=== PATIENT | female | born 1990 | race American Indian/Alaskan Native ===

== ENCOUNTER 2018-08-11 22:44 | Emergency (ER) | payer OTHER | END 2018-08-12 00:08 | disposition left against medical advice (07) | LOC: ED 22:44 | DX: J11.1 Influenza due to unidentified influenza virus with other respiratory manifestations (principal); Z53.21 Procedure and treatment not carried out due to patient leaving prior to being seen by health care provider ==

== ENCOUNTER 2018-10-05 06:23 | Emergency (ER) | payer OTHER ==
[2018-10-05] MEDS ORDERED: NACL 0.9% 1000 ML 1,000 ML IV ONE (06:39)
--- NOTE | 2018-10-05 07:19 | Emergency Department Report ---
ED Abdominal Pain HPI - General Chief Complaint: Abdominal Pain Stated Complaint: ABDOMINAL PAIN Time Seen by Provider: 10/05/18 07:16 Source: patient, EMS Mode of arrival: Stretcher Limitations: No Limitations - History of Present Illness Initial Comments: She is a 28-year-old female arrived via EMS. She states that she had the relatively acute onset of right lower quadrant pain which also hurts in the left lower quadrant since yesterday. She is status post a myomectomy a few weeks ago. She was seen here in mid August 2018. At which time she had a negative CT of her abdomen and also presenting for abdominal pain. She has had multiple abdominal surgeries to include cholecystectomy and appendectomy and addition. In addition the patient gives a history of having ulcerative colitis. I don't see that well documented in her prior medical records. She denies ever having chronic pain management. She states that she has been having normal bowel movements. She complains of some ongoing nausea but no fever or chills. She does not complain of any vaginal discharge or dysuria. Per her recent discharge summary by Dr. Platt: Pt is a 28yo BF LMP 09/07/18 who presented for surgical evaluation and treatment of uterine fibroids. Pelvic u/s showed the uterus 7 x 5 x 4cm with a 5 x 4cm fundal fibroid. She underwent an uncomplicated Abdominal myomectomy and tolerated the procedure well. By POD #1 she was tolerating a reg diet without n ausea or vomiting, ambulating and voiding without difficulty. She was therefore discharged to home on POD #2 in stable condition. Condition at discharge: Good Disposition: [id number] TO HOME OR SELFCARE MD Complaint: abdominal pain -: Sudden (1.) Location: RLQ (right greater than left lower quadrant) Radiation: none Severity: moderate, severe Quality: aching Consistency: constant Improves With: nothing Worsens With: nothing Context: recent surgery/procedure Associated Symptoms: denies other symptoms, nausea - Related Data Previous Rx's Medication Instructions Recorded Last Taken Type Ferrous Sulfate [Feosol 325 MG tab] 325 mg PO BID #60 tablet 09/20/18 Unknown Rx HYDROcodone/APAP 5-325 [[place] 1 each PO Q6HR PRN #30 tablet 09/20/18 Unknown Rx 5-325 mg TAB] HYDROcodone/APAP 5-325 [[place] 1 each PO Q6HR PRN #10 tablet 10/05/18 Unknown Rx 5/325] Allergies Allergy/AdvReac Type Severity Reaction Status Date / Time No Known Allergies Allergy Verified 09/11/18 12:13 ED Review of Systems ROS: Stated complaint: ABDOMINAL PAIN Other details as noted in HPI Constitutional: denies: chills, fever Eyes: denies: eye pain, eye discharge, vision change ENT: denies: ear pain, throat pain Respiratory: denies: cough, shortness of breath, wheezing Cardiovascular: denies: chest pain, palpitations Endocrine: no symptoms reported Gastrointestinal: as per HPI, abdominal pain, nausea. denies: diarrhea Genitourinary: denies: urgency, dysuria, discharge Musculoskeletal: denies: back pain, joint swelling, arthralgia Skin: denies: rash, lesions Neurological: denies: headache, weakness, paresthesias Psychiatric: denies: anxiety, depression Hematological/Lymphatic: denies: easy bleeding, easy bruising ED Past Medical Hx - Past Medical History Previous Medical History?: Yes Additional medical history: ulcerative colitis - Surgical History Past Surgical History?: Yes Hx Cholecystectomy: Yes Hx Appendectomy: Yes Additional Surgical History: ankle surgery, uterine fibroids removed 09/18/18. States cholecystectomy and appendectomy - Social History Smoking Status: Never Smoker Substance Use Type: Marijuana - Medications Home Medications: Home Medications Medication Instructions Recorded Confirmed Last Taken Type Ferrous Sulfate [Feosol 325 MG tab] 325 mg PO BID #60 tablet 09/20/18 Unknown Rx HYDROcodone/APAP 5-325 [[place] 1 each PO Q6HR PRN #30 tablet 09/20/18 Unknown Rx 5-325 mg TAB] HYDROcodone/APAP 5-325 [[place] 1 each PO Q6HR PRN #10 tablet 10/05/18 Unknown Rx 5/325] ED Physical Exam - General Limitations: No Limitations General appearance: alert, in no apparent distress - Head Head exam: Present: atraumatic, normocephalic - Eye Eye exam: Present: normal appearance - ENT ENT exam: Present: mucous membranes moist - Neck Neck exam: Present: normal inspection - Respiratory Respiratory exam: Present: normal lung sounds bilaterally. Absent: respiratory distress - Cardiovascular Cardiovascular Exam: Present: regular rate, normal rhythm, other (heart rate is 60 despite complaints of severe pain). Absent: systolic murmur, diastolic murmur, rubs, gallop - GI/Abdominal GI/Abdominal exam: Present: soft, tenderness (tenderness appears to be d isproportionate even to light touch on the left side), normal bowel sounds. Absent: distended, guarding, rebound, rigid, organomegaly, mass, bruit, pulsatile mass, hernia - Extremities Exam Extremities exam: Present: normal inspection - Back Exam Back exam: Present: normal inspection - Neurological Exam Neurological exam: Present: alert, oriented X3, CN II-XII intact. Absent: motor sensory deficit - Psychiatric Psychiatric exam: Present: normal affect, normal mood - Skin Skin exam: Present: warm, dry, intact, normal color. Absent: rash ED Course Vital Signs 10/05/18 10/05/18 10/05/18 06:33 07:35 11:34 Temperature 98 F Pulse Rate 65 84 60 Respiratory 8 L 16 16 Rate Blood Pressure 139/103 Blood Pressure 147/84 160/101 [Left] O2 Sat by Pulse 100 96 95 Oximetry - Reevaluation(s) Reevaluation #1: Patient had continued disproportionate pain complaints. Her vital signs remai dalton normal. I spoke with Dr. King who is on-call for Dr. Platt. Dr. Platt has seen the patient in the office one week postop. The meter reader chief on-call did review the CT findings. She did not feel that it was necessary to see the patient directly at this point. She felt that follow-up in the office would be appropriate and a small course of oral pain medicine. Therefore the patient will be discharged at this juncture. 10/05/18 11:45 ED Medical Decision Making - Lab Data Result diagrams: 10/05/18 07:12 10/05/18 07:12 Laboratory Results - last 24 hr 10/05/18 10/05/18 07:12 07:12 WBC 8.5 RBC 3.86 Hgb 11.5 Hct 34.6 MCV 90 MCH 30 MCHC 33 RDW 13.8 Plt Count 338 Lymph % (Auto) 16.3 [place] % (Auto) 7.9 H Eos % (Auto) 0.9 Baso % (Auto) 0.4 Lymph # 1.4 [place] # 0.7 Eos # 0.1 Baso # 0.0 Seg Neutrophils % 74.5 H Seg Neutrophils # 6.3 Urine Color Yellow Urine Turbidity Clear Urine pH 6.0 Ur Specific [place] 1.024 Urine Protein 30 mg/dl Urine Glucose (UA) Neg Urine Ketones Neg Urine Blood Neg Urine Nitrite Neg Urine Bilirubin Neg Urine Urobilinogen 4.0 Ur Leukocyte Esterase Tr Urine WBC (Auto) 5.0 Urine RBC (Auto) 1.0 U Epithel Cells (Auto) < 1.0 Urine Bacteria (Auto) 1+ Urine Mucus Few Laboratory Results - last 24 hr 10/05/18 10/05/18 10/05/18 07:12 07:12 07:12 WBC 8.5 RBC 3.86 Hgb 11.5 Hct 34.6 MCV 90 MCH 30 MCHC 33 RDW 13.8 Plt Count 338 Lymph % (Auto) 16.3 [place] % (Auto) 7.9 H Eos % (Auto) 0.9 Baso % (Auto) 0.4 Lymph # 1.4 [place] # 0.7 Eos # 0.1 Baso # 0.0 Seg Neutrophils % 74.5 H Seg Neutrophils # 6.3 Sodium 138 Potassium 3.9 Chloride 101.0 Carbon Dioxide 21 L Anion Gap 20 BUN 8 Creatinine 0.6 L Estimated GFR > 60 BUN/Creatinine Ratio 13 Glucose 125 H Calcium 9.1 Total Bilirubin 0.50 AST 12 ALT 11 Alkaline Phosphatase 78 Total Protein 7.5 Albumin 4.0 Albumin/Globulin Ratio 1.1 Lipase HCG, Qual Urine Color Yellow Urine Turbidity Clear Urine pH 6.0 Ur Specific [place] 1.024 Urine Protein 30 mg/dl Urine Glucose (UA) Neg Urine Ketones Neg Urine Blood Neg Urine Nitrite Neg Urine Bilirubin Neg Urine Urobilinogen 4.0 Ur Leukocyte Esterase Tr Urine WBC (Auto) 5.0 Urine RBC (Auto) 1.0 U Epithel Cells (Auto) < 1.0 Urine Bacteria (Auto) 1+ Urine Mucus Few Urine HCG, Qual 10/05/18 10/05/18 10/05/18 07:12 07:12 07:12 WBC RBC Hgb Hct MCV MCH MCHC RDW Plt Count Lymph % (Auto) [place] % (Auto) Eos % (Auto) Baso % (Auto) Lymph # [place] # Eos # Baso # Seg Neutrophils % Seg Neutrophils # Sodium Potassium Chloride Carbon Dioxide Anion Gap BUN Creatinine Estimated GFR BUN/Creatinine Ratio Glucose Calcium Total Bilirubin AST ALT Alkaline Phosphatase Total Protein Albumin Albumin/Globulin Ratio Lipase 33 HCG, Qual Negative Urine Color Urine Turbidity Urine pH Ur Specific [place] Urine Protein Urine Glucose (UA) Urine Ketones Urine Blood Urine Nitrite Urine Bilirubin Urine Urobilinogen Ur Leukocyte Esterase Urine WBC (Auto) Urine RBC (Auto) U Epithel Cells (Auto) Urine Bacteria (Auto) Urine Mucus Urine HCG, Qual Negative - Radiology Data Radiology results: report reviewed interpreted by me: CONCLUSION: 1. Pelvic/lower abdominal wall anterior subcutaneous postoperative fluid noted, as described above in this patient with recent interval myomectomy. 2. No significant abnormality within the pelvis with small free fluid noted, within physiologic limits. 3. Various other incidental findings as mild distal esophageal thickening, cholecystectomy, nonobstructing bilateral nephrolithiasis and postappendectomy changes, amongst others, as above. Critical care attestation.: If time is entered above; I have spent that time in minutes in the direct care of this critically ill patient, excluding procedure time. ED Disposition Clinical Impression: Status post myomectomy Abdominal pain Qualifiers: Abdominal location: lower abdomen, unspecified Qualified Code(s): R10.30 - Lower abdominal pain, unspecified Disposition: TO HOME OR SELFCARE Is pt being admited?: No Does the pt Need Aspirin: No Condition: Stable Instructions: Abdominal Pain (ED) Additional Instructions: Return any acute change or problem. See Dr. Platt on Monday or call the office for further instruction. Prescriptions: HYDROcodone/APAP 5-325 [[place] 5/325] 1 each PO Q6HR PRN #10 tablet PRN Reason: Pain Referrals: CLARENCE GUTIERREZ MD [Primary Care Provider] - 3-5 Days NIRALI PLATT MD [Staff Physician] - 2-3 Days Time of Disposition: 11:48
[2018-10-05 07:28] LABS: Bacteria,Urine 1+ /HPF (Negative); Bilirubin,Urine NEG (Negative); Blood,Urine NEG (Negative); Color,Urine Yellow (Yellow); Mucus,Urine FEW /HPF
[2018-10-05] MEDS ORDERED: MORPHINE ONE (07:30)
[2018-10-05] MEDS ORDERED: ZOFRAN ONE (07:30)
[2018-10-05 07:32] LABS: Basophils % (Auto) 0.4 % (0.0-1.8); Eosinophils # (Auto) 0.1 K/mm3 (0.0-0.4); Eosinophils % (Auto) 0.9 % (0.0-4.3); Hematocrit 34.6 % (30.3-42.9); Hemoglobin 11.5 gm/dl (10.1-14.3); Lymphocytes # (Auto) 1.4 K/mm3 (1.2-5.4); Lymphocytes % (Auto) 16.3 % (13.4-35.0); Mean Corpuscular HGB Conc 33 % (30-34); Mean Corpuscular Volume 90 fl (79-97); Monocytes # (Auto) 0.7 K/mm3 (0.0-0.8); Monocytes % (Auto) 7.9 % (0.0-7.3); Platelet Count 338 K/mm3 (140-440); Red Blood Count 3.86 M/mm3 (3.65-5.03); Red Cell Distribution Width 13.8 % (13.2-15.2)
[2018-10-05] MEDS ORDERED: MORPHINE IV ONE (07:32)
[2018-10-05] MEDS ORDERED: ZOFRAN IV ONE (07:33)
[2018-10-05 07:43] LABS: HCG Qualitative,Urine Negative (Negative)
[2018-10-05 07:48] LABS: Alanine Aminotransferase 11 units/L (7-56); BUN/Creatinine Ratio 13; Blood Urea Nitrogen 8 mg/dL (7-17); Calcium 9.1 mg/dL (8.4-10.2); Hemolysis Index 12
--- NOTE | 2018-10-05 09:36 | Cat Scan Report ---
CT ABDOMEN AND PELVIS WITH CONTRAST INDICATION: Right lower quadrant pain, myomectomy 2 weeks ago. COMPARISON: 08/12/2018 CT. FINDINGS: Abdomen and pelvis CT performed following intravenous administration of 100 cc of Omnipaque 300. LUNG BASES: Nonspecific distal esophageal wall mild prominence/thickening, not excluded for gastroesophageal reflux and/or hiatal hernia, amongst others. ABDOMEN: Stable cholecystectomy and few small nonobstructing bilateral renal calculi, more numerous and larger on the right than left, measuring up to 3-4 mm at the right upper renal pole as on axial series 2, image 50 and better visualized on prior noncontrast exam. Liver, spleen, pancreas, adrenals, aorta and IVC remain within normal limits. Nonopacified GI tract evaluation limited, though grossly nonobstructive. Stable appendectomy changes. No ascites or size significant adenopathy. PELVIS: Interval resection of dominant fundal fibroid projecting anteroinferiorly on the right towards the groin as on axial image 140, series 2 previously. Grossly unremarkable remainder uterus, adnexa, urinary bladder and the rectosigmoid. Small free fluid in the cul-de-sac posteriorly seen as on axial image 135, within physiologic limits. No size significant adenopathy. Lower abdominal/anterior pelvic wall now demonstrates approximately 2 cm AP x 10.5 cm transverse and approximately 5 cm craniocaudal simple subcutaneous fluid attenuation as on axial series 2, images 111-131, likely postoperative. Subtle subcutaneous fat stranding may also extend superolaterally as on axial images 65-95. No focal aggressive osseous lesions with a transitional lumbosacral vertebra possible. CONCLUSION: 1. Pelvic/lower abdominal wall anterior subcutaneous postoperative fluid noted, as described above in this patient with recent interval myomectomy. 2. No significant abnormality within the pelvis with small free fluid noted, within physiologic limits. 3. Various other incidental findings as mild distal esophageal thickening, cholecystectomy, nonobstructing bilateral nephrolithiasis and postappendectomy changes, amongst others, as above. Thank you for the opportunity to participate in this patient's care.
[2018-10-05] MEDS ORDERED: DILAUDID IV ONE (11:26)
[2018-10-05 12:42] VITALS: BP 126/71
== END 2018-10-05 12:42 | disposition home or self-care (01) ==
LOC: ED 06:23
DX: O26.891 Other specified pregnancy related conditions, first trimester (principal); O34.29 Maternal care due to uterine scar from other previous surgery; Z3A.01 Less than 8 weeks gestation of pregnancy; Z90.49 Acquired absence of other specified parts of digestive tract; Z98.890 Other specified postprocedural states
CPT/HCPCS: 36415; 74177; 80053; 81001; 81025; 83690; 84703; 85025; 96374; 96375; 99284; J1170; J2270; J2405; J7030; Q9967

== ENCOUNTER 2018-10-06 08:23 | Emergency (ER) | payer OTHER ==
[2018-10-06] MEDS ORDERED: ZOFRAN ONE (08:35)
[2018-10-06] MEDS ORDERED: REGLAN ONE (10:06)
[2018-10-06] MEDS ORDERED: DILAUDID ONE (10:07)
--- NOTE | 2018-10-06 10:09 | Emergency Department Report ---
ED General Adult HPI - General Chief complaint: Abdominal Pain Stated complaint: ABD PAIN Time Seen by Provider: 10/06/18 10:05 Source: patient, EMS (ems notes not available at time of chart dictation), RN notes reviewed, old records reviewed Mode of arrival: Stretcher Limitations: No Limitations - History of Present Illness Initial comments: This is a 28-year-old female. The patient is not known to this provider previously. 2 weeks ago, patient had elective myomectomy with my colleague, Dr. Kaiden Platt. She was apparently discharged with an uncomplicated postoperative course. She apparently followed up in his office one week later, without significant complication. She presented to this emergency room yesterday with abdominal pain. A CT scan of the abdomen and pelvis performed yesterday demonstrated a 2 cm x 10 cm and approximately 5 cm simple subcutaneous fluid accumulation, on the lower abdominal wall. This was suspected to be a postoperative fluid collection, seroma, but not infectious in etiology. The case was discussed with the mat making machine tender sanitation director, Dr. Rashawn King, who advised that this particular finding did not represent an emergent postoperative surgical complication. The patient was subsequently discharged with oral pain medication. The patient presents with recurrent lower abdominal pain. She reports the pain has been present for 2-3 days. It is burning, aching, sharp, does not radiate anywhere, increased with palpation, decreased with position, decreased with rest, and also decreased with intravenous hydromorphone, and Reglan, provided in the emergency room. The patient reports no irritative or obstructive urinary symptoms. On review of systems, the patient does admits to intermittent consumption of cannabis, and also endorses occasional relief of chronic discomfort with hot baths, hot showers. The patient is currently resting comfortable he, in her stretcher, sleeping, with no active vomiting. -: Gradual Location: abdomen Radiation: non-radiation Severity scale (0 -10): 9 Quality: aching Consistency: intermittent Improves with: medication Associated Symptoms: nausea/vomiting - Related Data Previous Rx's Medication Instructions Recorded Last Taken Type Ferrous Sulfate [Feosol 325 MG tab] 325 mg PO BID #60 tablet 09/20/18 Unknown Rx HYDROcodone/APAP 5-325 [[place] 1 each PO Q6HR PRN #30 tablet 09/20/18 Unknown Rx 5-325 mg TAB] HYDROcodone/APAP 5-325 [[place] 1 each PO Q6HR PRN #10 tablet 10/05/18 Unknown Rx 5/325] Ondansetron [Zofran Odt] 4 mg PO Q8HR PRN #20 tab.rapdis 10/06/18 Unknown Rx Promethazine [Phenergan SUPPOS] 50 mg MO Q6H PRN #15 supp.rect 10/06/18 Unknown Rx Allergies Allergy/AdvReac Type Severity Reaction Status Date / Time No Known Allergies Allergy Verified 09/11/18 12:13 ED Review of Systems ROS: Stated complaint: ABD PAIN Other details as noted in HPI Constitutional: malaise. denies: fever Eyes: denies: vision change ENT: denies: epistaxis Respiratory: denies: cough Cardiovascular: denies: chest pain Gastrointestinal: abdominal pain, nausea, vomiting Genitourinary: denies: dysuria Musculoskeletal: denies: back pain Skin: denies: lesions Neurological: weakness Psychiatric: anxiety ED Past Medical Hx - Past Medical History Previous Medical History?: No Additional medical history: ulcerative colitis - Surgical History Past Surgical History?: Yes Hx Cholecystectomy: Yes Hx Appendectomy: Yes Additional Surgical History: ankle surgery, uterine fibroids removed 09/18/18. States cholecystectomy and appendectomy - Social History Smoking Status: Unknown if ever smoked - Medications Home Medications: Home Medications Medication Instructions Recorded Confirmed Last Taken Type Ferrous Sulfate [Feosol 325 MG tab] 325 mg PO BID #60 tablet 09/20/18 Unknown Rx HYDROcodone/APAP 5-325 [[place] 1 each PO Q6HR PRN #30 tablet 09/20/18 Unknown Rx 5-325 mg TAB] HYDROcodone/APAP 5-325 [[place] 1 each PO Q6HR PRN #10 tablet 10/05/18 Unknown Rx 5/325] Ondansetron [Zofran Odt] 4 mg PO Q8HR PRN #20 tab.rapdis 10/06/18 Unknown Rx Promethazine [Phenergan SUPPOS] 50 mg MO Q6H PRN #15 supp.rect 10/06/18 Unknown Rx ED Physical Exam - General Limitations: No Limitations General appearance: alert, anxious, in distress - Head Head exam: Present: atraumatic, normocephalic - Eye Eye exam: Present: normal appearance, EOMI - ENT ENT exam: Present: normal exam, normal orophraynx, mucous membranes moist, normal external ear exam - Neck Neck exam: Present: normal inspection, full ROM. Absent: tenderness, meningismus - Respiratory Respiratory exam: Present: normal lung sounds bilaterally. Absent: respiratory distress - Cardiovascular Cardiovascular Exam: Present: regular rate, normal rhythm, normal heart sounds. Absent: bradycardia, tachycardia, irregular rhythm, systolic murmur, diastolic murmur, rubs, gallop - GI/Abdominal GI/Abdominal exam: Present: soft, tenderness (there is mild lower abdominal tenderness. There is no rebound, guarding or peritoneal signs. No redness, pus or streaking). Absent: distended, guarding, rebound, rigid, pulsatile mass - Extremities Exam Extremities exam: Present: normal inspection, full ROM, other (2+ pulses noted in the bilateral upper, lower extremities. Compartments soft. No long bony tenderness. The pelvis is stable.). Absent: pedal edema, joint swelling, calf tenderness - Back Exam Back exam: Present: normal inspection, full ROM. Absent: tenderness, CVA tenderness (R), paraspinal tenderness, vertebral tenderness - Neurological Exam Neurological exam: Present: alert, oriented X3, CN II-XII intact, other (Extraocular movements intact. Tongue midline. No facial droop. Facial sensa tion intact to light touch in the V1, V2, V3 distribution bilaterally. 5 and 5 strength in 4 extremities.. Sensation is intact to light touch in 4 extremities.). Absent: motor sensory deficit - Psychiatric Psychiatric exam: Present: anxious - Skin Skin exam: Present: warm, dry, intact, normal color. Absent: rash ED Course Vital Signs 10/06/18 10/06/18 08:49 10:14 Temperature 97.8 F Pulse Rate 76 Respiratory 20 18 Rate Blood Pressure 153/85 [Right] O2 Sat by Pulse 100 Oximetry - Reevaluation(s) Reevaluation #1: 10/06/18 10:09 Filled ID Written Drug QTY Days Prescriber Rx # Pharmacy * Refills Daily Dose Pymt Type [facility] [employer] [employer] 09/21/2018 2 09/21/2018 HYDROCODONE-ACETAMIN 5-325 MG 30.0 8 TI BRO [id number] [facility] ([id number]) 0 18.75 [facility] [place] 03/23/2018 2 03/23/2018 ACETAMINOPHEN-COD #3 TABLET 12.0 3 WE LEI [id number] [facility] ([id number]) 0 18.0 [facility] [place] 11/29/2017 3 11/28/2017 HYDROCODONE-ACETAMIN 5-325 MG 24.0 12 [facility] [id number] [facility] ([id number]) 0 10.0 [facility] [place] garment cutter aware Reevaluation #2: 10/06/18 11:25 Differential diagnosis, including not limited to: Postoperative seroma, postoperative pain, cannabinoid hyperemesis syndrome, cyclic vomiting syndrome Assessment and plan: 28-year-old female with recurrent lower abdominal pain. The patient is reported to have an uncomplicated postoperative course, and reportedly followed up for her outpatient postoperative appointment without complication. The patient currently does not have active vomiting. Her CT scan findings were reviewed from yesterday, and discussed with her mat making machine tender of record, Dr. Daisha rice. He agrees that the patient's condition does not require emergent gynecologic consultation, for inpatient hospitalization. He agrees that patient is suitable to follow up as an outpatient closely. Advises warm compresses. The patient will be counseled to discontinue cannabis consumption. Her prescriptions were reviewed with the [place] prescription monitoring database. She was given a short course of narcotic prescription, appropriately so, by my colleague yesterday, Dr. Ely. 10/06/18 11:30 ED Medical Decision Making - Lab Data Result diagrams: 10/06/18 10:29 10/06/18 10:29 Vital Signs 10/06/18 10/06/18 08:49 10:14 Temperature 97.8 F Pulse Rate 76 Respiratory 20 18 Rate Blood Pressure 153/85 [Right] O2 Sat by Pulse 100 Oximetry Lab Results 10/06/18 10/06/18 10/06/18 Range/Units 10:29 10:29 10:29 WBC 8.8 (4.5-11.0) K/mm3 RBC 4.15 (3.65-5.03) M/mm3 Hgb 12.3 (10.1-14.3) gm/dl Hct 36.6 (30.3-42.9) % MCV 88 (79-97) fl MCH 30 (28-32) pg MCHC 34 (30-34) % RDW 13.2 (13.2-15.2) % Plt Count 320 (140-440) K/mm3 Lymph % (Auto) 12.8 L (13.4-35.0) % [place] % (Auto) 5.8 (0.0-7.3) % Eos % (Auto) 2.3 (0.0-4.3) % Baso % (Auto) 0.6 (0.0-1.8) % Lymph # 1.1 L (1.2-5.4) K/mm3 [place] # 0.5 (0.0-0.8) K/mm3 Eos # 0.2 (0.0-0.4) K/mm3 Baso # 0.1 (0.0-0.1) K/mm3 Seg Neutrophils % 78.5 H (40.0-70.0) % Seg Neutrophils # 6.9 (1.8-7.7) K/mm3 Sodium 137 (137-145) mmol/L Potassium 3.5 L (3.6-5.0) mmol/L Chloride 102.4 (98-107) mmol/L Carbon Dioxide 21 L (22-30) mmol/L Anion Gap 17 mmol/L BUN 10 (7-17) mg/dL Creatinine 0.8 (0.7-1.2) mg/dL Estimated GFR > 60 ml/min BUN/Creatinine Ratio 13 % Glucose 118 H (65-100) mg/dL Lactic Acid 1.20 (0.7-2.0) mmol/L Calcium 9.3 (8.4-10.2) mg/dL Magnesium 1.70 (1.7-2.3) mg/dL Total Bilirubin 0.30 (0.1-1.2) mg/dL AST 13 (5-40) units/L ALT 10 (7-56) units/L Alkaline Phosphatase 81 (35-129) units/L Total Creatine Kinase 65 (30-135) units/L Total Protein 7.6 (6.3-8.2) g/dL Albumin 4.0 (3.9-5) g/dL Albumin/Globulin Ratio 1.1 % - Radiology Data Radiology results: report reviewed, image reviewed CT scan report and findings from yesterday are reviewed Critical care attestation.: If time is entered above; I have spent that time in minutes in the direct care of this critically ill patient, excluding procedure time. ED Disposition Clinical Impression: Status post myomectomy, Abdominal pain Disposition: TO HOME OR SELFCARE Is pt being admited?: No Does the pt Need Aspirin: No Condition: Stable Instructions: Abdominal Pain (ED) Additional Instructions: Take the medications as needed/directed. Apply warm compresses to the lower abdominal region as needed. Follow up with her mat making machine tender, Dr. Platt, within the next 3-5 days. Discontinue consumption of cannabis. Advance diet as tolerated. Return to the emergency room right away with new, worsening or different symptoms. Referrals: KAIDEN PLATT MD [Staff Physician] - 3-5 Days
[2018-10-06] MEDS ORDERED: NACL 0.9% 1000 ML 1,000 ML IV ONE (10:14)
[2018-10-06] MEDS ORDERED: REGLAN IV ONE (10:15)
[2018-10-06] MEDS ORDERED: ZOFRAN IV ONE (10:15)
[2018-10-06] MEDS ORDERED: DILAUDID IV ONE (10:15)
[2018-10-06 10:41] LABS: Basophils # (Auto) 0.1 K/mm3 (0.0-0.1); Basophils % (Auto) 0.6 % (0.0-1.8); Eosinophils # (Auto) 0.2 K/mm3 (0.0-0.4); Eosinophils % (Auto) 2.3 % (0.0-4.3); Hematocrit 36.6 % (30.3-42.9); Hemoglobin 12.3 gm/dl (10.1-14.3); Lymphocytes # (Auto) 1.1 K/mm3 (1.2-5.4); Lymphocytes % (Auto) 12.8 % (13.4-35.0); Mean Corpuscular HGB Conc 34 % (30-34); Mean Corpuscular Volume 88 fl (79-97); Monocytes # (Auto) 0.5 K/mm3 (0.0-0.8); Monocytes % (Auto) 5.8 % (0.0-7.3); Platelet Count 320 K/mm3 (140-440); Red Blood Count 4.15 M/mm3 (3.65-5.03); Red Cell Distribution Width 13.2 % (13.2-15.2)
[2018-10-06 11:04] LABS: Alanine Aminotransferase 10 units/L (7-56); BUN/Creatinine Ratio 13; Blood Urea Nitrogen 10 mg/dL (7-17); Calcium 9.3 mg/dL (8.4-10.2); Hemolysis Index 14
[2018-10-06] MEDS ORDERED: PERCOCET 5/325 PO ONE (12:18)
[2018-10-06 18:46] VITALS: BP 137/77
== END 2018-10-06 11:45 | disposition home or self-care (01) ==
LOC: ED 08:23
DX: K91.89 Other postprocedural complications and disorders of digestive system (principal); R10.30 Lower abdominal pain, unspecified; R11.2 Nausea with vomiting, unspecified; Z98.890 Other specified postprocedural states
CPT/HCPCS: 36415; 80053; 82140; 82550; 83735; 85025; 96361; 96374; 96375; 99284; J1170; J2405; J2765; J7030

== ENCOUNTER 2018-11-12 09:21 | Emergency (ER) | payer OTHER ==
[2018-11-12] MEDS ORDERED: ZOFRAN IV ONE ×2 (11:48→14:16)
[2018-11-12] MEDS ORDERED: NACL 0.9% 1000 ML 1,000 ML IV ONE (11:48)
[2018-11-12] MEDS ORDERED: MORPHINE IV ONE ×2 (11:48→14:16)
[2018-11-12 12:36] LABS: Basophils % (Auto) 0.6 % (0.0-1.8); Eosinophils # (Auto) 0.1 K/mm3 (0.0-0.4); Eosinophils % (Auto) 0.7 % (0.0-4.3); Hematocrit 36.4 % (30.3-42.9); Hemoglobin 11.9 gm/dl (10.1-14.3); Lymphocytes # (Auto) 1.6 K/mm3 (1.2-5.4); Lymphocytes % (Auto) 20.7 % (13.4-35.0); Mean Corpuscular HGB Conc 33 % (30-34); Mean Corpuscular Volume 89 fl (79-97); Monocytes # (Auto) 0.5 K/mm3 (0.0-0.8); Monocytes % (Auto) 6.9 % (0.0-7.3); Platelet Count 275 K/mm3 (140-440); Red Blood Count 4.08 M/mm3 (3.65-5.03); Red Cell Distribution Width 14.2 % (13.2-15.2)
[2018-11-12 12:42] LABS: Alanine Aminotransferase 8 units/L (7-56); Albumin 4.3 g/dL (3.9-5); BUN/Creatinine Ratio 9; Blood Urea Nitrogen 6 mg/dL (7-17); Calcium 8.8 mg/dL (8.4-10.2); Hemolysis Index 6
--- NOTE | 2018-11-12 12:43 | Emergency Department Report ---
<ROBERTA AZUL - Last Filed: 11/12/18 12:41> ED General Adult HPI - General Chief complaint: Nausea/Vomiting/Diarrhea Stated complaint: ABDOMINAL PAIN Time Seen by Provider: 11/12/18 11:27 Source: patient Mode of arrival: Ambulatory Limitations: No Limitations - History of Present Illness Initial comments: The patient complains of abdominal pain with nausea and vomiting x 3 days. The patient has Ulcerative Colitis. Patient denies diarrhea -: Sudden Location: abdomen Radiation: non-radiation Severity scale (0 -10): 10 Quality: stabbing Consistency: constant Improves with: none Worsens with: none Associated Symptoms: denies other symptoms Treatments Prior to Arrival: none - Related Data Previous Rx's Medication Instructions Recorded Last Taken Type Ferrous Sulfate [Feosol 325 MG tab] 325 mg PO BID #60 tablet 09/20/18 Unknown Rx Ibuprofen [Motrin 600 MG tab] 600 mg PO Q8H PRN #30 tablet 10/06/18 Unknown Rx Promethazine [Phenergan SUPPOS] 50 mg [place] Q6H PRN #15 supp.rect 10/06/18 Unknown Rx Dicyclomine [Bentyl] 10 mg PO QID PRN #20 capsule 11/12/18 Unknown Rx Ondansetron [Zofran ODT TAB] 4 mg PO Q8HR PRN #14 tab.rapdis 11/12/18 Unknown Rx Allergies Allergy/AdvReac Type Severity Reaction Status Date / Time No Known Allergies Allergy Verified 09/11/18 12:13 ED Review of Systems Comment: All other systems reviewed and negative Constitutional: denies: chills, fever Eyes: denies: eye pain, eye discharge, vision change ENT: denies: ear pain, throat pain Respiratory: denies: cough, shortness of breath, wheezing Cardiovascular: denies: chest pain, palpitations Endocrine: no symptoms reported Gastrointestinal: abdominal pain, nausea, vomiting. denies: diarrhea Genitourinary: denies: urgency, dysuria, discharge Musculoskeletal: denies: back pain, joint swelling, arthralgia Skin: denies: rash, lesions Neurological: denies: headache, weakness, paresthesias Psychiatric: denies: anxiety, depression Hematological/Lymphatic: denies: easy bleeding, easy bruising ED Past Medical Hx - Past Medical History Previous Medical History?: Yes Additional medical history: ulcerative colitis - Surgical History Past Surgical History?: Yes Hx Cholecystectomy: Yes Hx Appendectomy: Yes Additional Surgical History: ankle surgery, uterine fibroids removed 09/18/18. States cholecystectomy and appendectomy - Social History Smoking Status: Never Smoker Substance Use Type: None - Medications Home Medications: Home Medications Medication Instructions Recorded Confirmed Last Taken Type Ferrous Sulfate [Feosol 325 MG tab] 325 mg PO BID #60 tablet 09/20/18 Unknown Rx Ibuprofen [Motrin 600 MG tab] 600 mg PO Q8H PRN #30 tablet 10/06/18 Unknown Rx Promethazine [Phenergan SUPPOS] 50 mg [place] Q6H PRN #15 supp.rect 10/06/18 Unknown Rx Dicyclomine [Bentyl] 10 mg PO QID PRN #20 capsule 11/12/18 Unknown Rx Ondansetron [Zofran ODT TAB] 4 mg PO Q8HR PRN #14 tab.rapdis 11/12/18 Unknown Rx ED Physical Exam - General Limitations: No Limitations General appearance: alert, in no apparent distress - Head Head exam: Present: atraumatic, normocephalic - Eye Eye exam: Present: normal appearance, PERRL, EOMI - ENT ENT exam: Present: mucous membranes moist - Neck Neck exam: Present: normal inspection - Respiratory Respiratory exam: Present: normal lung sounds bilaterally. Absent: respiratory distress, wheezes, rales - Cardiovascular Cardiovascular Exam: Present: regular rate, normal rhythm. Absent: systolic murmur, diastolic murmur, rubs, gallop - GI/Abdominal GI/Abdominal exam: Present: soft, tenderness, normal bowel sounds. Absent: distended - Extremities Exam Extremities exam: Present: normal inspection - Back Exam Back exam: Present: normal inspection - Neurological Exam Neurological exam: Present: alert, oriented X3, CN II-XII intact. Absent: motor sensory deficit - Psychiatric Psychiatric exam: Present: normal affect, normal mood - Skin Skin exam: Present: warm, dry, intact, normal color. Absent: rash ED Medical Decision Making - Lab Data Result diagrams: 11/12/18 12:08 ED Disposition Clinical Impression: Abdominal pain Qualifiers: Abdominal location: generalized Qualified Code(s): R10.84 - Generalized abdominal pain Nausea & vomiting Qualifiers: Vomiting type: unspecified Vomiting Intractability: non-intractable Qualified Code(s): R11.2 - Nausea with vomiting, unspecified Disposition: DC-01 TO HOME OR SELFCARE Condition: Stable Instructions: Abdominal Pain (ED), Acute Nausea and Vomiting (ED) Additional Instructions: Please follow up with your GI doctor, Dr. Platt in 2-3 days. Follow up with your primary care doctor in the next 2-3 days. Return to the emergency room for any new or worsening symptoms as discussed. Take medication as prescribed. Prescriptions: Dicyclomine [Bentyl] 10 mg PO QID PRN #20 capsule PRN Reason: Pain Ondansetron [Zofran ODT TAB] 4 mg PO Q8HR PRN #14 tab.rapdis PRN Reason: Nausea Referrals: NYA GILL MD [Primary Care Provider] - 2-3 Days JOSEFA PLATT MD [Staff Physician] - 2-3 Days Print Language: OCCITAN <AUBREY LLAMAS - Last Filed: 11/12/18 17:58> ED Review of Systems ROS: Stated complaint: ABDOMINAL PAIN Other details as noted in HPI ED Course Vital Signs 11/12/18 11/12/18 11/12/18 09:48 12:33 13:30 Temperature 98.2 F 98.2 F Pulse Rate 68 62 Respiratory 16 18 16 Rate Blood Pressure 146/82 Blood Pressure 105/60 [Right] O2 Sat by Pulse 100 100 Oximetry 11/12/18 16:43 Temperature 98 F Pulse Rate 72 Respiratory 17 Rate Blood Pressure Blood Pressure 105/65 [Right] O2 Sat by Pulse 96 Oximetry ED Medical Decision Making - Lab Data Result diagrams: 11/12/18 12:08 11/12/18 12:08 Labs 11/12/18 11/12/18 11/12/18 12:08 12:08 12:08 WBC 7.5 RBC 4.08 Hgb 11.9 Hct 36.4 MCV 89 MCH 29 MCHC 33 RDW 14.2 Plt Count 275 Lymph % (Auto) 20.7 [place] % (Auto) 6.9 Eos % (Auto) 0.7 Baso % (Auto) 0.6 Lymph # 1.6 [place] # 0.5 Eos # 0.1 Baso # 0.0 Seg Neutrophils % 71.1 H Seg Neutrophils # 5.3 Sodium 138 Potassium 3.6 Chloride 103.0 Carbon Dioxide 23 Anion Gap 16 BUN 6 L Creatinine 0.7 Estimated GFR > 60 BUN/Creatinine Ratio 9 Glucose 114 H Calcium 8.8 Total Bilirubin 0.70 AST 13 ALT 8 Alkaline Phosphatase 64 Total Protein 7.8 Albumin 4.3 Albumin/Globulin Ratio 1.2 Lipase 31 HCG, Qual Negative Vital Signs 11/12/18 11/12/18 11/12/18 09:48 12:33 13:30 Temperature 98.2 F 98.2 F Pulse Rate 68 62 Respiratory 16 18 16 Rate Blood Pressure 146/82 Blood Pressure 105/60 [Right] O2 Sat by Pulse 100 100 Oximetry 11/12/18 16:43 Temperature 98 F Pulse Rate 72 Respiratory 17 Rate Blood Pressure Blood Pressure 105/65 [Right] O2 Sat by Pulse 96 Oximetry - Radiology Data Radiology results: report reviewed PROCEDURE: CT ABDOMEN PELVIS W CON TECHNIQUE: Following IV administration of 100 cc of Omnipaque 300 axial helical imaging was performed through the abdomen and pelvis with sagittal and coronal reformatted images obtained. HISTORY: ab pain COMPARISONS: CT abdomen and pelvis dated October 05, 2018 FINDINGS: The lung bases are without infiltrate, pneumothorax or pleural fluid collection. The heart appears to be normal size. There is evidence of fatty infiltration of the liver. The spleen, pancreas and adrenal glands are unremarkable. There are punctate nonobstructing stones in the right renal pelvis. There is no evidence of hydronephrosis nor hydroureter. The gallbladder is absent with surgical clips in the gallbladder fossa. The bowel is normal caliber. There is no evidence of pneumoperitoneum or free fluid. There is evidence of previous appendectomy. The abdominal aorta is normal caliber. There is no evidence of intra-abdominal adenopathy. The urinary bladder is moderately distended and unremarkable. The uterus and adnexa are unremarkable. The bony structures are unremarkable. The previously demonstrated abnormal fluid collection in the anterior abdominal subcutaneous soft tissues is no longer demonstrated. IMPRESSION: 1. No evidence of an acute intra-abdominal process. 2. Fatty infiltration of the liver. 3. Nonobstructing stones right renal pelvis. 4. Status post cholecystectomy. This document is electronically signed by Edith Pierre MD., November 12 2018 05:38:47 PM ET - Medical Decision Making The patient complains of abdominal pain with nausea and vomiting x 3 days. The patient has Ulcerative Colitis. Patient denies diarrhea s/o from Dr. Azul Pt has had no further episodes of emesis while in the ED and is tolerating PO intake. Pt pain has resolved s/p pain medications. Labs are stable, no leukocytosis. Pt does not appear dehydrated, vitals are normal. no abnormal BM movements, no blood, no pus. no fever. UA is normal, no UTI, hcg is negative. Ct abd/pelvis shows punctuate kidney stones in the renal pelvis, fatty liver, otherwise no acute process. Does not appear to be having a flare of her UC. Will give pt bentyl and zofran. Will have pt see her GI doctor, Dr. Platt in 2-3 days. WIll have pt see her PCP in the next 2-3 days. Discussed in detail with pt to return to the ED for any new or worsening symptoms. Critical care attestation.: If time is entered above; I have spent that time in minutes in the direct care of this critically ill patient, excluding procedure time. ED Disposition Is pt being admited?: No Does the pt Need Aspirin: No Time of Disposition: 17:56
[2018-11-12 16:44] VITALS: BP 105/65
--- NOTE | 2018-11-12 17:40 | Cat Scan Report ---
PROCEDURE: CT ABDOMEN PELVIS W CON TECHNIQUE: Following IV administration of 100 cc of Omnipaque 300 axial helical imaging was performe d through the abdomen and pelvis with sagittal and coronal reformatted images obtained. HISTORY: ab pain COMPARISONS: CT abdomen and pelvis dated October 05, 2018 FINDINGS: The lung bases are without infiltrate, pneumothorax or pleural fluid collection. The heart appears to be normal size. There is evidence of fatty infiltration of the liver. The spleen, pancreas and adrenal glands are unremarkable. There are punctate nonobstructing stones in the right renal pelvis. There is no evidence of hydroneph rosis nor hydroureter. The gallbladder is absent with surgical clips in the gallbladder fossa. The bowel is normal caliber. There is no evidence of pneumoperitoneum or free fluid. There is evidence of previous appendectomy. The abdominal aorta is normal caliber. There is no evidence of intra-abdominal adenopathy. The urinary bladder is moderately distended and unremarkable. The uterus and adnexa are unremarkable. The bony structures are unremarkable. The previously demonstrated abnormal fluid collection in the anterior abdominal subcutaneous soft tis sues is no longer demonstrated. IMPRESSION: 1. No evidence of an acute intra-abdominal process. 2. Fatty infiltration of the liver. 3. Nonobstructing stones right renal pelvis. 4. Status post cholecystectomy. This document is electronically signed by Edith Pierre MD., November 12 2018 05:38:47 PM ET
[2018-11-12] MEDS ORDERED: TORADOL IV ONE (17:47)
== END 2018-11-12 18:24 | disposition home or self-care (01) ==
LOC: ED 09:21
DX: R10.84 Generalized abdominal pain (principal); R11.2 Nausea with vomiting, unspecified; Z90.49 Acquired absence of other specified parts of digestive tract
CPT/HCPCS: 36415; 74177; 80053; 83690; 84703; 85025; 96361; 96374; 96375; 96376; 99284; J1885; J2270; J2405; J7030; Q9967

== ENCOUNTER 2018-12-10 04:09 | Emergency (ER) | payer OTHER ==
[2018-12-10 04:53] LABS: Hematocrit 36.4 % (30.3-42.9); Hemoglobin 12.3 gm/dl (10.1-14.3); Mean Corpuscular HGB Conc 34 % (30-34); Mean Corpuscular Volume 89 fl (79-97); Platelet Count 276 K/mm3 (140-440); Red Blood Count 4.09 M/mm3 (3.65-5.03); Red Cell Distribution Width 14.3 % (13.2-15.2)
[2018-12-10 05:08] LABS: Alanine Aminotransferase 13 units/L (7-56); Albumin 4.5 g/dL (3.9-5); BUN/Creatinine Ratio 14; Blood Urea Nitrogen 10 mg/dL (7-17); Calcium 9.9 mg/dL (8.4-10.2); Hemolysis Index 3
[2018-12-10 06:20] LABS: Band Neutrophils # (Manual) 0.1 K/mm3; Basophils % (Manual) 0 % (0.0-1.8); Eosinophils % (Manual) 0 % (0.0-4.3); RBC Morphology Normal; Total Cells Counted 100
[2018-12-10 06:29] LABS: Bilirubin,Urine NEG (Negative); Blood,Urine NEG (Negative); Color,Urine Yellow (Yellow); Mucus,Urine 1+ /HPF; Urobilinogen,Urine < 2.0 mg/dL (<2.0)
[2018-12-10 06:32] LABS: HCG Qualitative,Urine Negative (Negative)
[2018-12-10] MEDS ORDERED: ZOFRAN ODT PO ONE (06:43)
[2018-12-10] MEDS ORDERED: ZOFRAN ODT ONE (06:43)
[2018-12-10] MEDS ORDERED: NACL 0.9% 1000 ML 1,000 ML IV ONE (06:47)
[2018-12-10] MEDS ORDERED: REGLAN IV ONE (06:47)
[2018-12-10] MEDS ORDERED: PEPCID IV ONE (06:47)
[2018-12-10] MEDS ORDERED: TORADOL IV ONE (06:47)
--- NOTE | 2018-12-10 08:13 | Emergency Department Report ---
ED Abdominal Pain HPI - General Chief Complaint: Abdominal Pain Stated Complaint: ABD PAIN/VOMITING Time Seen by Provider: 12/10/18 07:21 Source: patient Mode of arrival: Ambulatory Limitations: No Limitations - History of Present Illness Initial Comments: This is a 28-year-old female presents complaining of low abdominal pain 2 days. Patient's physician is restless and vomiting as well. Patient states she is had no recent unusual foods or water. Patient denies dysuria, vaginal discharge, fever, diarrhea or chest pain, shortness of breath or any other symptoms. She says last menstrual period was 12/10/2018 MD Complaint: abdominal pain Severity scale (0 -10): 8 - Related Data Previous Rx's Medication Instructions Recorded Last Taken Type Ferrous Sulfate [Feosol 325 MG tab] 325 mg PO BID #60 tablet 09/20/18 Unknown Rx Ibuprofen [Motrin 600 MG tab] 600 mg PO Q8H PRN #30 tablet 10/06/18 Unknown Rx Promethazine [Phenergan SUPPOS] 50 mg [place] Q6H PRN #15 supp.rect 10/06/18 Unknown Rx Dicyclomine [Bentyl] 10 mg PO QID PRN #20 capsule 11/12/18 Unknown Rx Ondansetron [Zofran ODT TAB] 4 mg PO Q8HR PRN #14 tab.rapdis 11/12/18 Unknown Rx Ondansetron [Zofran ODT TAB] 8 mg PO Q12HR #20 tab.rapdis 12/10/18 Unknown Rx Allergies Allergy/AdvReac Type Severity Reaction Status Date / Time No Known Allergies Allergy Verified 09/11/18 12:13 ED Review of Systems ROS: Stated complaint: ABD PAIN/VOMITING Other details as noted in HPI Comment: All other systems reviewed and negative ED Past Medical Hx - Past Medical History Previous Medical History?: Yes Additional medical history: ulcerative colitis - Surgical History Past Surgical History?: Yes Hx Cholecystectomy: Yes Hx Appendectomy: Yes Additional Surgical History: ankle surgery, uterine fibroids removed 09/18/18. States cholecystectomy and appendectomy - Social History Smoking Status: Former Smoker Substance Use Type: Marijuana - Medications Home Medications: Home Medications Medication Instructions Recorded Confirmed Last Taken Type Ferrous Sulfate [Feosol 325 MG tab] 325 mg PO BID #60 tablet 09/20/18 Unknown Rx Ibuprofen [Motrin 600 MG tab] 600 mg PO Q8H PRN #30 tablet 10/06/18 Unknown Rx Promethazine [Phenergan SUPPOS] 50 mg [place] Q6H PRN #15 supp.rect 10/06/18 Unknown Rx Dicyclomine [Bentyl] 10 mg PO QID PRN #20 capsule 11/12/18 Unknown Rx Ondansetron [Zofran ODT TAB] 4 mg PO Q8HR PRN #14 tab.rapdis 11/12/18 Unknown Rx Ondansetron [Zofran ODT TAB] 8 mg PO Q12HR #20 tab.rapdis 12/10/18 Unknown Rx ED Physical Exam - General Limitations: No Limitations General appearance: alert, in no apparent distress - Head Head exam: Present: atraumatic, normocephalic - Eye Eye exam: Present: normal appearance - ENT ENT exam: Present: mucous membranes moist - Neck Neck exam: Present: normal inspection - Respiratory Respiratory exam: Present: normal lung sounds bilaterally. Absent: respiratory distress, wheezes - Cardiovascular Cardiovascular Exam: Present: regular rate, normal rhythm. Absent: systolic murmur, diastolic murmur, rubs, gallop - GI/Abdominal GI/Abdominal exam: Present: soft, normal bowel sounds. Absent: distended, tenderness, guarding, mass - Extremities Exam Extremities exam: Present: normal inspection, full ROM. Absent: tenderness - Back Exam Back exam: Present: normal inspection, full ROM. Absent: tenderness, CVA tenderness (R), CVA tenderness (L) - Neurological Exam Neurological exam: Present: alert, oriented X3 - Psychiatric Psychiatric exam: Present: normal affect, normal mood - Skin Skin exam: Present: warm, dry, intact, normal color. Absent: rash ED Course Vital Signs 12/10/18 12/10/18 12/10/18 04:13 07:00 07:30 Temperature 97.5 F L Pulse Rate 72 Respiratory 18 16 18 Rate Blood Pressure 154/103 Blood Pressure [Right] O2 Sat by Pulse 100 Oximetry 12/10/18 12/10/18 07:43 08:06 Temperature 98.8 F Pulse Rate 72 Respiratory 18 18 Rate Blood Pressure Blood Pressure 131/70 [Right] O2 Sat by Pulse 99 98 Oximetry ED Medical Decision Making - Lab Data Result diagrams: 12/10/18 04:31 12/10/18 04:31 - Medical Decision Making 28-year-old female presents with gastroenteritis/ flareup of her ulcerative colitis. All was within normal limits. Patient received IV fluids 1 L. Patient is resting comfortably laying down in her ED bed. No active vomiting in the ED. Vital signs are normal she is in no acute distress. - Differential Diagnosis Gastroenteris versus menstrual cramps Critical care attestation.: If time is entered above; I have spent that time in minutes in the direct care of this critically ill patient, excluding procedure time. ED Disposition Clinical Impression: Gastroenteritis Disposition: DC-01 TO HOME OR SELFCARE Is pt being admited?: No Does the pt Need Aspirin: No Condition: Stable Instructions: Gastroenteritis (ED), Ulcerative Colitis (ED), Abdominal Pain (ED) Additional Instructions: Make sure to follow up with the primary care physician as discussed. Take all your medications as you've been prescribed. If you have any worsening symptoms or develop new symptoms please return to ED immediately. Prescriptions: Ondansetron [Zofran ODT TAB] 8 mg PO Q12HR #20 tab.rapdis Referrals: NYA GILL MD [Primary Care Provider] - 3-5 Days [facility] [Provider Group] - 3-5 Days Forms: Accompanied Note, Work/School Release Form(ED) Time of Disposition: 08:15
[2018-12-10 09:38] VITALS: BP 130/74
== END 2018-12-10 09:37 | disposition home or self-care (01) ==
LOC: ED 04:09
DX: K52.9 Noninfective gastroenteritis and colitis, unspecified (principal); Z90.49 Acquired absence of other specified parts of digestive tract; Z87.891 Personal history of nicotine dependence
CPT/HCPCS: 36415; 80053; 81001; 81025; 84703; 85007; 85025; 96361; 96374; 96375; 99283; J1885; J2765; J7030; Q0162

== ENCOUNTER 2019-01-20 08:05 | Emergency (ER) | payer OTHER ==
[2019-01-20] MEDS ORDERED: NACL 0.9% 1000 ML 1,000 ML IV ONE (08:40)
[2019-01-20] MEDS ORDERED: MORPHINE IV ONE (08:40)
[2019-01-20] MEDS ORDERED: ZOFRAN IV ONE (08:40)
--- NOTE | 2019-01-20 08:43 | Emergency Department Report ---
ED Abdominal Pain HPI - General Chief Complaint: Abdominal Pain Stated Complaint: VOMIT/ABD PAIN Time Seen by Provider: 01/20/19 08:37 Source: patient Mode of arrival: Ambulatory Limitations: No Limitations - History of Present Illness Initial Comments: Patient is 28 years old female with no significant past medical history except for recent fibroid removal by Dr. Platt in September. Patient presented to the ER complaining of lower abdominal pain associated with nausea and vomiting for the last 3 days. Patient described her pain as crampy in nature with no radiation. Patient denies any vaginal bleeding or vaginal discharge. Patient also denied any diarrhea, fever or chills. MD Complaint: abdominal pain - Related Data Previous Rx's Medication Instructions Recorded Last Taken Type Ferrous Sulfate [Feosol 325 MG tab] 325 mg PO BID #60 tablet 09/20/18 Unknown Rx Ibuprofen [Motrin 600 MG tab] 600 mg PO Q8H PRN #30 tablet 10/06/18 Unknown Rx Promethazine [Phenergan SUPPOS] 50 mg [place] Q6H PRN #15 supp.rect 10/06/18 Unknown Rx Dicyclomine [Bentyl] 10 mg PO QID PRN #20 capsule 11/12/18 Unknown Rx Ondansetron [Zofran ODT TAB] 4 mg PO Q8HR PRN #14 tab.rapdis 11/12/18 Unknown Rx Ondansetron [Zofran ODT TAB] 8 mg PO Q12HR #20 tab.rapdis 12/10/18 Unknown Rx Allergies Allergy/AdvReac Type Severity Reaction Status Date / Time No Known Allergies Allergy Verified 01/20/19 08:06 ED Review of Systems ROS: Stated complaint: VOMIT/ABD PAIN Other details as noted in HPI Comment: All other systems reviewed and negative Constitutional: denies: chills, fever Respiratory: denies: cough Cardiovascular: denies: chest pain, palpitations Gastrointestinal: abdominal pain, nausea, vomiting. denies: diarrhea, constipation, hematemesis Neurological: denies: headache, weakness ED Past Medical Hx - Past Medical History Additional medical history: ulcerative colitis - Surgical History Hx Cholecystectomy: Yes Hx Appendectomy: Yes Additional Surgical History: ankle surgery, uterine fibroids removed 09/18/18. States cholecystectomy and appendectomy - Social History Smoking Status: Never Smoker Substance Use Type: Marijuana - Medications Home Medications: Home Medications Medication Instructions Recorded Confirmed Last Taken Type Ferrous Sulfate [Feosol 325 MG tab] 325 mg PO BID #60 tablet 09/20/18 Unknown Rx Ibuprofen [Motrin 600 MG tab] 600 mg PO Q8H PRN #30 tablet 10/06/18 Unknown Rx Promethazine [Phenergan SUPPOS] 50 mg [place] Q6H PRN #15 supp.rect 10/06/18 Unknown Rx Dicyclomine [Bentyl] 10 mg PO QID PRN #20 capsule 11/12/18 Unknown Rx Ondansetron [Zofran ODT TAB] 4 mg PO Q8HR PRN #14 tab.rapdis 11/12/18 Unknown Rx Ondansetron [Zofran ODT TAB] 8 mg PO Q12HR #20 tab.rapdis 12/10/18 Unknown Rx ED Physical Exam - General Limitations: No Limitations General appearance: alert, in no apparent distress - Head Head exam: Present: atraumatic, normocephalic, normal inspection - ENT ENT exam: Present: mucous membranes dry - Neck Neck exam: Present: normal inspection, full ROM. Absent: tenderness, meningismus, lymphadenopathy, thyromegaly - Respiratory Respiratory exam: Present: normal lung sounds bilaterally - Cardiovascular Cardiovascular Exam: Present: regular rate, normal rhythm, normal heart sounds - GI/Abdominal GI/Abdominal exam: Present: soft, normal bowel sounds. Absent: distended, tenderness, guarding, rebound, rigid, organomegaly, mass, bruit, pulsatile mass, hernia - Extremities Exam Extremities exam: Present: normal inspection, full ROM, normal capillary refill. Absent: pedal edema, calf tenderness - Back Exam Back exam: Present: normal inspection, full ROM. Absent: CVA tenderness (R), CVA tenderness (L) - Neurological Exam Neurological exam: Present: alert, oriented X3, CN II-XII intact, reflexes normal - Psychiatric Psychiatric exam: Present: normal mood - Skin Skin exam: Present: warm, intact, normal color ED Course Vital Signs 01/20/19 01/20/19 01/20/19 08:06 09:31 11:10 Temperature 98.1 F Pulse Rate 58 L Respiratory 20 17 17 Rate Blood Pressure 162/106 Blood Pressure [Left] O2 Sat by Pulse 97 Oximetry 01/20/19 01/20/19 11:13 13:20 Temperature 98.4 F Pulse Rate 56 L Respiratory 17 100 H Rate Blood Pressure Blood Pressure 161/78 [Left] O2 Sat by Pulse Oximetry ED Medical Decision Making - Lab Data Result diagrams: 01/20/19 08:12 01/20/19 08:12 - Radiology Data Radiology results: report reviewed - Medical Decision Making Patient is 28 years old female with no significant past medical history except for recent fibroid removal by Dr. Platt in September. Patient presented to the ER complaining of lower abdominal pain associated with nausea and vomiting for the last 3 days. Patient described her pain as crampy in nature with no radiation. Patient denies any vaginal bleeding or vaginal discharge. Patient also denied any diarrhea, fever or chills Patient received Zofran, Reglan and morphine. Patient stated that she is feeling much better. No more vomiting. CT abdomen and pelvis showed no acute intra-abdominal pathology. Patient advised to follow up with her primary care physician in the next 2-3 days and to return to the ER if symptoms are not improved. Critical care attestation.: If time is entered above; I have spent that time in minutes in the direct care of this critically ill patient, excluding procedure time. ED Disposition Clinical Impression: Abdominal pain, Nausea and vomiting Disposition: DC-01 TO HOME OR SELFCARE Is pt being admited?: No Condition: Stable Instructions: Abdominal Pain (ED), Acute Nausea and Vomiting (ED) Referrals: PEDRO TAYLOR MD [Primary Care Provider] - 3-5 Days
[2019-01-20 08:46] LABS: Basophils % (Auto) 0.1 % (0.0-1.8); Hematocrit 36.4 % (30.3-42.9); Hemoglobin 12.2 gm/dl (10.1-14.3); Lymphocytes % (Auto) 9.5 % (13.4-35.0); Mean Corpuscular HGB Conc 34 % (30-34); Mean Corpuscular Volume 90 fl (79-97); Monocytes # (Auto) 0.6 K/mm3 (0.0-0.8); Monocytes % (Auto) 5.8 % (0.0-7.3); Platelet Count 297 K/mm3 (140-440); Red Blood Count 4.07 M/mm3 (3.65-5.03); Red Cell Distribution Width 14.7 % (13.2-15.2)
[2019-01-20 09:02] LABS: Alanine Aminotransferase 9 units/L (7-56); Albumin 4.5 g/dL (3.9-5); BUN/Creatinine Ratio 9; Blood Urea Nitrogen 8 mg/dL (7-17); Calcium 9.7 mg/dL (8.4-10.2); Hemolysis Index 7
[2019-01-20] MEDS ORDERED: REGLAN ONE (11:08)
[2019-01-20] MEDS ORDERED: TORADOL ONE (11:10)
[2019-01-20] MEDS ORDERED: REGLAN IV ONE (11:12)
[2019-01-20] MEDS ORDERED: TORADOL IV ONE (11:12)
[2019-01-20 11:29] LABS: Bilirubin,Urine NEG (Negative); Blood,Urine NEG (Negative); Color,Urine Yellow (Yellow); Mucus,Urine 1+ /HPF; Protein,Urine <15 mg/dL mg/dL (Negative)
--- NOTE | 2019-01-20 13:04 | Cat Scan Report ---
PROCEDURE: CT ABDOMEN PELVIS W CON TECHNIQUE: Computerized axial tomography of the abdomen and pelvis was performed after the IV inject ion of iodinated nonionic contrast. CT DOSE LENGTH PRODUCT: 2998.5 mGycm HISTORY: abdominal pain FINDINGS: Contrast-enhanced CT of the abdomen and pelvis was performed and compared to the prior exam ination of November 12, 2018. The heart is normal in size. the lung bases appear clear. ABDOMEN: The liver, spleen, adrenal glands, pancreas are unremarkable. There has been a cholecystectomy. There are several right right nonobstructing renal calculi the largest of which measures 0.4 cm. There is a 0.2 cm left nonobstructing renal calculus. No ureteral calculus or hydronephrosis is identified. There is no small or large bowel obstruction. The abdominal aorta is normal in size. Pelvis: The appendix is not seen and may be surgically absent. There is no evidence of diverticulitis. There is a left ovarian cyst, 1.1 cm. The endometrial stripe is top normal in size at 1.6 cm. IMPRESSION: Bilateral nonobstructing renal calculi. No ureteral calculus or hydronephrosis is identified Cholecystectomy Pelvis: The patient appears to be status post appendectomy No evidence of diverticulitis This document is electronically signed by Prince Flower MD., January 20 2019 01:02:38 PM ET
[2019-01-20 13:21] VITALS: BP 161/78
== END 2019-01-20 14:18 | disposition home or self-care (01) ==
LOC: ED 08:05
DX: R10.30 Lower abdominal pain, unspecified (principal); R11.2 Nausea with vomiting, unspecified; F12.10 Cannabis abuse, uncomplicated; Z90.49 Acquired absence of other specified parts of digestive tract; Z98.890 Other specified postprocedural states
CPT/HCPCS: 36415; 74177; 80053; 81001; 84703; 85025; 96361; 96374; 96375; 99284; J1885; J2270; J2405; J2765; J7030; Q9967